=== PATIENT | male | born 1995 | race Hispanic/Latino ===

== ENCOUNTER 2017-12-15 08:05 | Emergency (ER) | payer OTHER ==
[2017-12-15] MEDS: IBUPROFEN 600 MG TAB PO (08:45)
== END 2017-12-15 09:37 | disposition home or self-care (01) ==
LOC: M ED 08:05
DX: S20.212A Contusion of left front wall of thorax, initial encounter (principal); W50.0XXA Accidental hit or strike by another person, initial encounter; Y92.89 Other specified places as the place of occurrence of the external cause; Y93.75 Activity, martial arts
CPT/HCPCS: 71046